=== PATIENT | male | born 1940 | race Hispanic/Latino ===

== ENCOUNTER 2018-08-13 09:11 | Day surgery (SDC) | payer MEDICARE, MEDICAID ==
[2018-08-13 09:12] VITALS: BMI 28.8
[2018-08-13] MEDS ORDERED: Sodium Chloride 0.9% 1,000 ML IV SCH (09:45)
--- NOTE | 2018-08-13 10:31 | RAD ---
Chest x-ray single frontal view HISTORY: Shortness of breath. COMPARISON: None available. FINDINGS: Elevated right hemidiaphragm. Mild venous congestion. Right hilar prominence. Patchy increased markings in the right suprahilar region. Atherosclerotic calcification plaque in the aorta. Tortuous ectatic aorta. Cardiomegaly. Venous congestion. Degenerative changes in the spine and shoulders. Impression: Elevated right hemidiaphragm. Mild venous congestion. Right hilar prominence. Patchy increased markings in the right suprahilar region. Atherosclerotic calcification plaque in the aorta. Tortuous ectatic aorta. Cardiomegaly. Venous congestion.
[2018-08-13 10:36] LABS: BASO % 0.3 % (0.0-2.0); EOS # 0.3 K/uL (0.0-0.7); EOS % 2.1 % (0.0-4.0); HEMOGLOBIN 12.8 g/dL (12.0-18.0); LYMPH # 1.1 K/uL (1.0-4.3); LYMPH % 7.6 % (20.0-40.0); MEAN CELL VOLUME 90.2 fL (80.0-94.0); MEAN CORPUSCULAR HEMOGLOBIN 29.6 pg (27.0-31.0); MEAN CORPUSCULAR HGB CONC 32.8 g/dL (33.0-37.0); MEAN PLATELET VOLUME 8.2 fL (7.2-11.7); MONO % 6.9 % (0.0-10.0); NEUT # 12.1 K/uL (1.8-7.0); NEUT % 83.1 % (50.0-75.0); PLATELET COUNT 452 K/uL (130-400); RBC 4.34 Mil/uL (4.40-5.90); RED CELL DISTRIBUTION WIDTH 13.6 % (11.5-14.5); WHITE BLOOD COUNT 14.5 K/uL (4.8-10.8)
[2018-08-13 10:42] LABS: INR 1.2; PROTHROMBIN TIME 12.8 SECONDS (9.7-12.2)
[2018-08-13 10:54] LABS: ALB/GLOB RATIO 0.8 (1.0-2.1); ALBUMIN 3.1 g/dL (3.5-5.0); CALCIUM 10.2 mg/dl (8.6-10.4)
[2018-08-13 11:37] LABS: BANDS 1 % (0-2); LYMPHOCYTE 8 % (20-40); MONOCYTE 4 % (0-10); NEUTROPHIL 87 % (50-75); TOTAL CELLS COUNTED 100
[2018-08-13 11:38] LABS: PLATELET ESTIMATE INCREASED (NORMAL)
--- NOTE | 2018-08-13 11:56 | C.PDOC ---
History Of Present Illness 78 y/o male brought to [facility] for benjamin catheter change. Patient states that he has benjamin catheter for long period of time. Patient reports that his catheter become calcified so it has not been removed. He notes that it is not draining. Denies having other complaints at this time. Time Seen by Provider: 08/13/18 09:19 Chief Complaint (Nursing): Male Genitourinary History Per: Patient History/Exam Limitations: no limitations Current Symptoms Are (Timing): Still Present Severity: Mild Quality Of Discomfort: Burning Past Medical History Reviewed: Historical Data, Nursing Documentation, Vital Signs Vital Signs: Last Vital Signs Temp 97.7 F 08/13/18 09:15 Pulse 62 08/13/18 09:15 Resp 20 08/13/18 09:15 BP 101/64 08/13/18 09:15 Pulse Ox 95 08/13/18 09:15 Primary Care Provider: Rush Gill - Medical History PMH: Anemia (BLOOD TRANSFUSION), Cardia Arrhythmia, CHF, Fibromyalgia Denies: Chronic Kidney Disease Surgical History: Denies: Pacemaker Other Surgeries: Hx of surgeries. amputations - [facility] Procedures CYSTOSCOPY NEC (01/19/14) DETACHMENT AT LEFT LOWER LEG, LOW, OPEN APPROACH (10/30/15) EXCISION OF BUTTOCK SUBCU/FASCIA, OPEN APPROACH (03/28/16) EXCISION OF LEFT LOWER FEMUR, OPEN APPROACH (01/03/16) GAIT TRAINING/AMBULAT TREATMENT USING ASSIST EQUIPMENT (01/09/16) HOME MANAGEMENT TREATMENT USING ASSIST EQUIPMENT (01/09/16) OTHER LOCAL DESTRUC SKIN (02/27/02) TRANSFUSE NONAUT RED BLOOD CELLS IN PERIPH VEIN, PERC (03/28/16) Family History: States: No Known Family Hx - Social History Hx Alcohol Use: No Hx Substance Use: No - Immunization History Hx Tetanus Toxoid Vaccination: No Hx Influenza Vaccination: No Hx Pneumococcal Vaccination: No Review Of Systems Except As Marked, All Systems Reviewed And Found Negative. Constitutional: Negative for: Fever, Chills Genitourinary: Negative for: Dysuria, Hematuria Physical Exam - Physical Exam Appears: No Acute Distress, Chronically Ill Skin: Normal Color, Warm, Dry Head: Atraumatic, Normacephalic Eye(s): bilateral: Normal Inspection Nose: Normal Oral Mucosa: Moist Neck: Supple Chest: Symmetrical Cardiovascular: Rhythm Regular Respiratory: Normal Breath Sounds, No Rales, No Rhonchi, No Wheezing Gastrointestinal/Abdominal: Normal Exam, Soft, No Tenderness, No Guarding, No Rebound Male Genital: Other (benjamin catheter with no urine drainage) Extremity: Normal ROM, Other (bilateral amputations below the knees) Neurological/Psych: Oriented x3, Normal Speech Gait: Other (bilateral lower extremity amputation) ED Course And Treatment - Laboratory Results Result Diagrams: 08/13/18 10:33 08/13/18 10:33 Lab Results: PT 12.8 SECONDS (9.7-12.2) H 08/13/18 10:33 INR 1.2 08/13/18 10:33 Total Bilirubin 0.3 mg/dL (0.2-1.3) 08/13/18 10:33 AST 16 U/L (17-59) L 08/13/18 10:33 ALT 16 U/L (21-72) L 08/13/18 10:33 Alkaline Phosphatase 97 U/L (38-126) 08/13/18 10:33 Total Protein 7.0 g/dL (6.3-8.3) 08/13/18 10:33 Albumin 3.1 g/dL (3.5-5.0) L 08/13/18 10:33 Globulin 3.8 gm/dL (2.2-3.9) 08/13/18 10:33 Albumin/Globulin Ratio 0.8 (1.0-2.1) L 08/13/18 10:33 Lab Interpretation: Abnormal ECG: Interpreted By Me ECG Rhythm: Sinus Rhythm Rate From EC O2 Sat by Pulse Oximetry: 95 (RA) Pulse Ox Interpretation: Normal - Radiology CXR: Viewed By Me, Read By Radiologist (FINDINGS:) - Other Rad No standard instances X-Ray: Interpreted by Me Interpretation: NAD Progress Note: Labs and CXR ordered. Patient treated with IV Fluids. Reassessment Condition: Unchanged Disposition Discussed With : Cathy Juárez Doctor Will See Patient In The: Hospital - Disposition Disposition: HOSPITALIZED Disposition Time: 12:00 Condition: STABLE - POA Present On Arrival: None - Clinical Impression Clinical Impression: Benjamin catheter problem - PA / CASE MGR / Resident Statement MD/DO has reviewed & agrees with the documentation as recorded. - Scribe Statement The provider has reviewed the documentation as recorded by the Karena Frye Provider Attestation All medical record entries made by the Karena were at my direction and personally dictated by me. I have reviewed the chart and agree that the record accurately reflects my personal performance of the history, physical exam, medical decision making, and the department course for this patient. I have also personally directed, reviewed, and agree with the discharge instructions and disposition. Decision To Admit - Pt Status Changed To: Hospital Disposition Of: SDS- Endo,OR,Cath,IR - . Bed Request Type: Same Day Surgery Admitting Physician: Cathy Juárez Patient Diagnosis: Benjamin catheter problem
[2018-08-13] MEDS ORDERED: Propofol 10 mg/ml Inj (20 ML) ONE (13:26)
[2018-08-13] MEDS ORDERED: Lidocaine Hydrochloride 5 ML INJ ONE (13:27)
[2018-08-13] MEDS ORDERED: cefTRIAXone 1 gm 1 GM/100 ML BAG IVPB ONE (14:06)
[2018-08-13] MEDS ORDERED: ePHEDrine 50 mg/ml Inj ONE (14:22)
[2018-08-13] MEDS ORDERED: HYDROmorphone 0.5 mg/0.5 ml ISec IVP PRN (14:57)
[2018-08-13 16:16] VITALS: BP 129/65; PULSE 77; RESP 16; TEMP 97.8; O2SAT 96
--- NOTE | 2018-08-15 07:44 | OP ---
PROCEDURE DATE: 08/13/2018 PREOPERATIVE DIAGNOSES: Lower abdominal pain; blocked catheter and calcified catheter, cannot be removed; prostatic hypertrophy, and bladder neck obstruction. POSTOPERATIVE DIAGNOSES: Calcified catheter, blocked catheter; no evidence of any urethral obstruction; severe bladder inflammation with multiple bladder stones; and prostatic hypertrophy. PROCEDURE: Cystoscopy, dilatation. SURGEON: Cathy Juárez MD DESCRIPTION OF PROCEDURE: While the patient in lithotomy position, genitalia were prepped and draped in a sterile fashion. The catheter was indwelling and cannot be removed, and the balloon cannot be deflated, manipulated. After putting wire into the channel of the balloon, the balloon inflated and the catheter was removed. The area was prepped. Cystoscopy revealed urethra normal, multiple scars in the prostatic urethra, bilateral lobe enlargement, causing obstruction. The bladder itself trabeculated 2+. Largest david color with multiple stones over 2.5 cm in size floating around the bladder. The bladder filled. The catheter was inserted. The patient will be brought to the OR in the future to fragment those bladder stones. Cathy Juárez MD
== END 2018-08-13 17:45 | disposition home or self-care (01) ==
LOC: C.ER 09:11 → C.SDS 09:45
PROVIDERS: ATTEND Internal Medicine
DX: T83.091A Other mechanical complication of indwelling urethral catheter, initial encounter (principal); N21.0 Calculus in bladder; N32.0 Bladder-neck obstruction; N40.0 Benign prostatic hyperplasia without lower urinary tract symptoms; I50.9 Heart failure, unspecified; M79.7 Fibromyalgia
CPT/HCPCS: 36415; 52281; 71045; 80053; 85025; 85610; 99285; J0696; J7030